=== PATIENT | female | born 1990 ===

== ENCOUNTER 2025-04-02 13:00 | Day surgery (SDC) | payer OTHER ==
[2025-03-27 10:49] VITALS: BP 117/80
[~2025-04-02] VITALS: Ht 162.6 cm; Wt 75.7 kg
== END 2025-04-02 17:50 | disposition home or self-care (01) ==
LOC: CIR.AMB 13:00 → ADM 13:00 → O/R 18:17 → ADM 18:17
PROVIDERS: ATTEND Obstetrics & Gynecology
DX: N70.91 Salpingitis, unspecified (principal); N93.8 Other specified abnormal uterine and vaginal bleeding; Z30.2 Encounter for sterilization; N72 Inflammatory disease of cervix uteri; R10.20 Pelvic and perineal pain unspecified side